=== PATIENT | female | born 1985 | race Caucasian/White ===

== ENCOUNTER 2021-12-25 04:57 | Emergency (ER) | payer OTHER ==
[2021-12-25 05:32] LABS: BASOPHIL 0.4 % (0-2); HCT 42.3 % (37.0-47.0); HGB 13.9 g/dl (12.5-16.0); LYMPHOCYTE 31.2 % (15-48); MCH 28.9 pg (25.0-31.0); MCHC 32.9 g/dL (32.0-36.0); MCV 87.9 fL (78.0-100.0); MONOCYTE 6.7 % (0-12); MPV 11.2 fL (6.0-9.5); NEUTROPHIL 60.5 % (41-80); NRBC 0; PLT 244 K/uL (150-400); RBC 4.81 M/uL (4.20-5.40); RDW 13.7 % (11.5-14.0); WBC 9.5 K/uL (4.0-10.5)
[2021-12-25 05:51] LABS: BILIRUBIN NEGATIVE (NEGATIVE); BLOOD 1+ Ery/uL (NEGATIVE); CLARITY CLEAR (CLEAR); COLOR YELLOW (YELLOW); GLUCOSE (U) NORMAL (NORMAL); LEUKOCYTES TRACE Leu/uL (NEGATIVE); NITRITE NEGATIVE (NEGATIVE); PROTEIN NEGATIVE (NEGATIVE); SPECIFIC GRAVITY >=1.030 (1.001-1.030); UROBILINOGEN 0.2 mg/dL (0.2-1.0); pH 5.5 (5.0-9.0)
[2021-12-25 06:11] LABS: CORONAVIRUS 2019 SARS-COV-2 NEGATIVE (NEGATIVE); INFLUENZA A NAA NEGATIVE (NEGATIVE)
[2021-12-25 06:25] LABS: BACTERIA TRACE; URINARY WBC RARE
[2021-12-25 07:01] LABS: ALBUMIN 3.8 g/dL (3.4-5.0); BILIRUBIN - TOTAL 0.4 mg/dL (0.2-1.0); BUN/CREAT RATIO (CALC) 14.1 RATIO; CREATININE 0.92 mg/dL (0.51-0.95); GLOBULIN (CALCULATION) 3.2 g/dL; POTASSIUM 3.8 mmol/L (3.5-5.1)
[2021-12-25] MEDS ORDERED: CIPRO500 MG PO (10:52)
[2021-12-25] MEDS ORDERED: FLAGYL500 MG PO (10:52)
[2021-12-26] MEDS ORDERED: ADVIL200 M1 PO (06:21)
[2021-12-26] MEDS ORDERED: ACETAMINOPHEN500 M1 PO (09:00)
[2021-12-26] MEDS ORDERED: COLACE100 MG PO (09:00)
[2021-12-26] MEDS ORDERED: OXY-IR 5MG5 MG PO (09:00)
== END 2021-12-25 10:49 | disposition left against medical advice (07) ==
LOC: FER 04:57
PROVIDERS: Internal Medicine
DX: K80.00 Calculus of gallbladder with acute cholecystitis without obstruction (principal); K52.9 Noninfective gastroenteritis and colitis, unspecified; F17.210 Nicotine dependence, cigarettes, uncomplicated; Z20.822 Contact with and (suspected) exposure to COVID-19; Z53.29 Procedure and treatment not carried out because of patient's decision for other reasons
CPT/HCPCS: 36415; 76705; 80053; 81001; 83690; 84145; 85025; J1170; J1200; J2543; U0002

== ENCOUNTER → 2021-12-26 | Day surgery (SDC) | payer OTHER ==
[~2021-12-26] VITALS: Ht 170.2 cm; Wt 63.5 kg
[~2021-12-26] MED LIST: ACETAMINOPHEN500 M1 PO; ADVIL200 M1 PO; CIPRO500 MG PO; COLACE100 MG PO; FLAGYL500 MG PO; OXY-IR 5MG5 MG PO
[2021-12-26 06:33] LABS: HCG (URINE) SCREEN NEGATIVE (NEGATIVE)
== END | disposition home or self-care (01) ==
LOC: FAS 06:04
PROVIDERS: Student in an Organized Health Care Education/Training Program
DX: K80.10 Calculus of gallbladder with chronic cholecystitis without obstruction (principal); F17.210 Nicotine dependence, cigarettes, uncomplicated; Z72.89 Other problems related to lifestyle
CPT/HCPCS: 84703; J1100; J1170; J1335; J1644; J1885; J2250; J2405; J2550; J2704; J2710; J3010; J7120; Q9967